=== PATIENT | male | born 1980 | race Caucasian/White ===

== ENCOUNTER 2017-03-15 01:09 | Inpatient (IN) | payer BC ==
[~2017-03-15] VITALS: Ht 182.9 cm; Wt 71.8 kg
[~2017-03-15 01:09] MED LIST: AUGMENTIN875 MG PO; PERCOCET 5/31 TABLET PO
[2017-03-15 01:35] LABS: HEMATOCRIT 40.5 % (38.0-50.0); MCH 30.2 PG (29.0-34.0); MCHC 33.6 G/DL (30.0-36.0); MEAN PLAT.VOLUME 10.2 uM^3 (9.0-12.4); PLATELET COUNT 338 K/uL (156-360); RBC DIS.WIDTH-CV 11.7 % (11.8-14.6); RBC DIS.WIDTH-SD 38.7 % (39-53); WHITE BLOOD COUNT 18.1 K/uL (4.1-10.2)
[2017-03-15 01:46] LABS: CHLORIDE 101 mEq/L (99-109); POTASSIUM 4.4 mEq/L (3.7-5.4); SODIUM 135 mEq/L (136-147)
[2017-03-15 01:48] LABS: GLUCOSE 112 mg/dL (70-99)
[2017-03-15 01:49] LABS: ANION GAP 11 MEQ/L (2-14)
[2017-03-15 01:50] LABS: TOTAL BILIRUBIN 0.9 mg/dL (0.0-1.0)
[2017-03-15 01:52] LABS: ALKALINE PHOSPHATASE 76 IU/L (3-129); GFR ESTIMATE (CALCULATED) > 59 mL/min/
[2017-03-15 01:53] LABS: UREA NITROGEN (BUN) 13 mg/dL (9-23)
[2017-03-15 01:54] LABS: ADD MIUA? NO; BILIRUBIN NEGATIVE; BLOOD NEGATIVE; COLOR YELLOW ((YELLOW)); GLUCOSE (STRIP) NEGATIVE; KETONES 5; LEUKOCYTES NEGATIVE; NITRITE NEGATIVE; PROTEIN (STRIP) 30; SPECIFIC GRAVITY 1.018 (1.000-1.030); UCUL ADDED? NO; UROBILINOGEN 0.2 MG/DL (0.2-1.0)
[2017-03-15 01:55] LABS: LIPASE 14 U/L (1.0-51.0)
[2017-03-15 12:57] LABS: INTER. NORMALIZED RATIO 1.3
[2017-03-15 12:59] LABS: PTT 32.5 SEC (25-37)
[2017-03-15 14:53] VITALS: BP 132/73
[2017-03-15 19:45] VITALS: BP 131/74
[2017-03-15 23:24] VITALS: BP 116/62
[2017-03-16 03:57] VITALS: BP 104/50
[2017-03-16 07:06] LABS: HEMATOCRIT 34.3 % (38.0-50.0); MCH 31.4 PG (29.0-34.0); MCV 89.8 FL (86-99); MEAN PLAT.VOLUME 10.8 uM^3 (9.0-12.4); PLATELET COUNT 294 K/uL (156-360); RBC DIS.WIDTH-CV 11.5 % (11.8-14.6); RBC DIS.WIDTH-SD 37.6 % (39-53); RED BLOOD COUNT 3.82 M/uL (4.00-5.50); WHITE BLOOD COUNT 14.6 K/uL (4.1-10.2)
[2017-03-16 07:28] LABS: ANION GAP 9 MEQ/L (2-14); CHLORIDE 103 MEQ/L (99-109); GFR ESTIMATE (CALCULATED) > 59 mL/min/; GLUCOSE 99 mg/dL (70-99); POTASSIUM 4.2 MEQ/L (3.7-5.4); SAMPLE HEMOLYSIS CHECK 0; SAMPLE ICTERIC CHECK 0; SAMPLE LIPEMIA CHECK 0; SODIUM 136 MEQ/L (136-147); UREA NITROGEN (BUN) 9 mg/dL (9-23)
[2017-03-16 07:54] VITALS: BP 115/64
[2017-03-16 11:40] VITALS: BP 115/68
[2017-03-16 15:40] VITALS: BP 122/68
[2017-03-16 19:31] VITALS: BP 118/61
[2017-03-17 01:24] VITALS: BP 108/57
[2017-03-17 03:31] VITALS: BP 118/65
[2017-03-17 07:33] VITALS: BP 125/65
[2017-03-17 07:56] LABS: HEMATOCRIT 35.9 % (38.0-50.0); MCH 31.3 PG (29.0-34.0); MCHC 34.5 G/DL (30.0-36.0); MCV 90.7 FL (86-99); MEAN PLAT.VOLUME 10.7 uM^3 (9.0-12.4); PLATELET COUNT 308 K/uL (156-360); RBC DIS.WIDTH-CV 11.8 % (11.8-14.6); RBC DIS.WIDTH-SD 39.1 % (39-53); RED BLOOD COUNT 3.96 M/uL (4.00-5.50); WHITE BLOOD COUNT 13.4 K/uL (4.1-10.2)
[2017-03-17 07:59] LABS: ANION GAP 7 MEQ/L (2-14); CHLORIDE 104 MEQ/L (99-109); GFR ESTIMATE (CALCULATED) > 59 mL/min/; GLUCOSE 95 mg/dL (70-99); POTASSIUM 4.5 MEQ/L (3.7-5.4); SAMPLE HEMOLYSIS CHECK 0; SAMPLE ICTERIC CHECK 0; SAMPLE LIPEMIA CHECK 0; SODIUM 139 MEQ/L (136-147); UREA NITROGEN (BUN) 5 mg/dL (9-23)
[2017-03-17 11:58] VITALS: BP 118/61
[2017-03-17 15:43] VITALS: BP 115/61
[2017-03-18 00:48] VITALS: BP 135/74
[2017-03-18 07:30] VITALS: BP 116/79
[2017-03-18 07:36] LABS: HEMATOCRIT 36.3 % (38.0-50.0); MCH 30.2 PG (29.0-34.0); MCHC 33.9 G/DL (30.0-36.0); MCV 89.2 FL (86-99); MEAN PLAT.VOLUME 10.4 uM^3 (9.0-12.4); PLATELET COUNT 353 K/uL (156-360); RBC DIS.WIDTH-CV 11.5 % (11.8-14.6); RBC DIS.WIDTH-SD 37.2 % (39-53); RED BLOOD COUNT 4.07 M/uL (4.00-5.50); WHITE BLOOD COUNT 9.9 K/uL (4.1-10.2)
[2017-03-18 08:02] LABS: ANION GAP 8 MEQ/L (2-14); CHLORIDE 103 MEQ/L (99-109); GFR ESTIMATE (CALCULATED) > 59 mL/min/; GLUCOSE 84 mg/dL (70-99); POTASSIUM 4.6 MEQ/L (3.7-5.4); SAMPLE HEMOLYSIS CHECK 0; SAMPLE ICTERIC CHECK 0; SAMPLE LIPEMIA CHECK 0; SODIUM 138 MEQ/L (136-147); UREA NITROGEN (BUN) 4 mg/dL (9-23)
[2017-03-18 11:30] LABS: C DIFF TOXIN POSITIVE (NEGATIVE)
[2017-03-18 11:31] LABS: PROBE CHECK PASS
[2017-03-18 12:03] VITALS: BP 126/77
[2017-03-18 16:25] VITALS: BP 100/56
[2017-03-18 23:07] VITALS: BP 112/78
[2017-03-19 06:42] LABS: HEMATOCRIT 40.4 % (38.0-50.0); MCH 30.4 PG (29.0-34.0); MCHC 33.7 G/DL (30.0-36.0); MCV 90.4 FL (86-99); MEAN PLAT.VOLUME 10.4 uM^3 (9.0-12.4); PLATELET COUNT 386 K/uL (156-360); RBC DIS.WIDTH-CV 11.9 % (11.8-14.6); RBC DIS.WIDTH-SD 39.1 % (39-53); RED BLOOD COUNT 4.47 M/uL (4.00-5.50); WHITE BLOOD COUNT 7.8 K/uL (4.1-10.2)
[2017-03-19 07:10] LABS: ANION GAP 14 MEQ/L (2-14); CHLORIDE 107 MEQ/L (99-109); GFR ESTIMATE (CALCULATED) > 59 mL/min/; GLUCOSE 89 mg/dL (70-99); POTASSIUM 4.6 MEQ/L (3.7-5.4); SAMPLE HEMOLYSIS CHECK 0; SAMPLE ICTERIC CHECK 0; SAMPLE LIPEMIA CHECK 0; SODIUM 142 MEQ/L (136-147); UREA NITROGEN (BUN) 6 mg/dL (9-23)
[2017-03-19 08:00] VITALS: BP 118/70
[2017-03-19] MEDS ORDERED: METRONIDAZOLE500 MG PO (12:35)
[2017-03-19] MEDS ORDERED: FLORASTOR250 MG PO (12:35)
[2017-03-19] MEDS ORDERED: BACTRIM,SEPT1 TABLET PO (12:35)
== END 2017-03-19 13:33 | disposition home or self-care (01) | DRG 357 ==
LOC: EME 01:09 → EDOF 04:35 → 2EASTP 04:35
PROVIDERS: Radiology Diagnostic Radiology; Surgery
PROC: 0WBF3ZX Excision of Abdominal Wall, Percutaneous Approach, Diagnostic (ICD-10-PCS; principal; 2017-03-15)
DX: K35.3 Acute appendicitis with localized peritonitis (principal); E86.0 Dehydration; A04.7 Enterocolitis due to Clostridium difficile
CPT/HCPCS: 74177; 77012; 80048; 80053; 81003; 83605; 83690; 85027; 85610; 85730; 87040; 87070; 87075; 87205; 87493; 88305; 99281; 99284; C1769; J1170; J1450; J1650; J2405; J2543; J3010; J7030; J7050